=== PATIENT | female | born 1945 | race Caucasian/White ===

== ENCOUNTER 2016-12-01 17:12 | Emergency (ER) | payer MEDICARE ==
[2016-12-01 17:31] VITALS: BP 140/74
--- NOTE | 2016-12-01 17:58 | UC ---
Lower Extremity/Ankle HPI - HPI Summary HPI Summary: 71 y/o female presents to the urgent care c/o of severe Rt calf pain 2 hrs ago while she was vacuuming at home. Pt reports her pain was 10/10 and in the second episode she fell on the floor due to pain. Pt states she has Hx of Fibromyalgia on Gabapentin 25mg PO. Her pain now is with movement and is mild 4 /10. Patient denies fever, SOB, chest pain, N/V/D. - History of Current Complaint Chief Complaint: UCLowerExtremity Stated Complaint: LEG PAIN, FALL Time Seen by Provider: 12/01/16 17:41 Hx Obtained From: Patient Hx Last Menstrual Period: menopausal ?: No Onset/Duration: Sudden Onset, Lasting Hours, Still Present Severity Initially: Severe Severity Currently: Mild Pain Intensity: 4 Pain Scale Used: 0-10 Numeric Aggravating Factor(s): Ambulation Alleviating Factor(s): Rest Able to Bear Weight: Yes - Risk Factors Gout Risk Factors: Age Over 40 DVT Risk Factors: Negative Septic Arthritis Risk Factor: Negative - Allergies/Home Medications Allergies/Adverse Reactions: Allergies Allergy/AdvReac Type Severity Reaction Status Date / Time SOME ANTIBIOTICS Allergy Severe GI Upset Uncoded 12/01/16 17:46 Home Medications: Home Medications Cetirizine HCl [All Day Allergy] 10 mg PO DAILY 12/01/16 [History Confirmed ] Cholecalciferol [Vitamin D] 1,000 unit PO DAILY 12/01/16 [History Confirmed ] Clonazepam 0.5 mg PO DAILY 12/01/16 [History Confirmed 12/01/16] Cyanocobalamin [B12] 1,000 mcg PO DAILY 12/01/16 [History Confirmed 12/01/16] Gabapentin [Fanatrex Fusepaq] 25 mg PO DAILY 12/01/16 [History Confirmed ] Magnesium 500 mg PO DAILY 12/01/16 [History Confirmed 12/01/16] Sertraline HCl [Zoloft] 50 mg PO DAILY 12/01/16 [History Confirmed 12/01/16] Triamcinolone NASAL SPRAY* [Nasacort AQ Nasal [place]*] 1 puff NASAL DAILY [History Confirmed 12/01/16] Vitamin Mixture [Leanne-C] 1 tab PO DAILY 12/01/16 [History Confirmed 12/01/16] PMH/Surg Hx/FS Hx/Imm Hx Previously Healthy: Yes Endocrine History: Other Other Endocrine History: fibromyalgia - Surgical History Surgical History: Yes Surgery Procedure, Year, and Place: tubal ligation. Hysterectomy. thryroid - Family History Known Family History: Positive: Cardiac Disease, Hypertension Family History: bladder CA - Social History Occupation: Retired Lives: With Family Alcohol Use: Rare Substance Use Type: None Smoking Status (MU): Never Smoked Tobacco Review of Systems Constitutional: Negative Skin: Negative Eyes: Negative ENT: Negative Respiratory: Negative Cardiovascular: Negative Gastrointestinal: Negative Genitourinary: Negative Motor: Negative Neurovascular: Negative Musculoskeletal: Calf Tenderness - RT side Neurological: Negative Psychological: Negative All Other Systems Reviewed And Are Negative: Yes Physical Exam Triage Information Reviewed: Yes Appearance: Well-Appearing, No Pain Distress, Well-Nourished, Obese Vital Signs: Initial Vital Signs Temp 99.6 F 12/01/16 17:15 Pulse 56 12/01/16 17:15 Resp 16 12/01/16 17:15 BP 140/74 12/01/16 17:15 Pulse Ox 97 12/01/16 17:15 Vital Signs Reviewed: Yes Eye Exam: Normal Eyes: Positive: Conjunctiva Clear - PERRLA, EOMI, fundus grossly normal b/L ENT Exam: Normal ENT: Positive: Normal ENT inspection, Hearing grossly normal, Pharynx normal, TMs normal Dental Exam: Normal Neck exam: Normal Neck: Positive: Supple, Nontender, No Lymphadenopathy Respiratory Exam: Normal Respiratory: Positive: Chest non-tender, Lungs clear, Normal breath sounds Cardiovascular Exam: Normal Cardiovascular: Positive: RRR, No Murmur, Pulses Normal Abdominal Exam: Normal Abdomen Description: Positive: Nontender, No Organomegaly, Soft. Negative: CVA Tenderness (R), CVA Tenderness (L) Bowel Sounds: Positive: Present Musculoskeletal Exam: Normal Musculoskeletal: Positive: Strength Intact, ROM Intact, No Edema, Other: - Positive RT calf tenderness on deep palpation, Abbie's sign positive, no swelling, FROM. RT knee w/o swelling, erythema or tenderness, Valgus and varus test negative, drawer test negative, Beatriz's test negative. Positive popliteal, posterior tibialis and dorsalis pedis pulses. Neurovascular intact. Positive capillary refill. Strength normal. Neurological Exam: Normal Neurological: Positive: Alert Psychological Exam: Normal Skin Exam: Normal Lower Extremity Course/Dx - Course Course Of Treatment: RT calf pain: Hx obtained. PE abnormal finding:Positive RT calf tenderness on deep palpation, Abbie's sign positive, no swelling, FROM. RT knee w/o swelling, erythema or tenderness, Valgus and varus test negative, drawer test negative, Beatriz's test negative. Positive popliteal, posterior tibialis and dorsalis pedis pulses. Neurovascular intact. Positive capillary refill. Strength normal. HR: 56, BP: 140/76. At this moment the facility does' t hace [facility] to r/o DVT. They clos at 5pm. Pt transfer to ED. I spoke to Nurse Kaiser and advised Pt will be transfer there for further evaluation and treatment. Pt going on private car and signed [facility] ambulance tranfer. Patient left the clinic ambulating and vital signs: WNL - Differential Dx/Diagnosis Differential Diagnosis/HQI/PQRI: Bursitis, Cellulitis, DVT, Sciatica, Other - payne's cyst Provider Diagnoses: Right calf pain Discharge - Discharge Plan Condition: Stable Disposition: AGAINST MEDICAL ADVICE
== END 2016-12-01 18:31 | disposition left against medical advice (07) ==
LOC: UCEAST 17:12
DX: M79.661 Pain in right lower leg (principal); M79.7 Fibromyalgia; E66.9 Obesity, unspecified; Z88.1 Allergy status to other antibiotic agents; Z90.710 Acquired absence of both cervix and uterus
CPT/HCPCS: 99212; G0463

== ENCOUNTER 2016-12-01 18:50 | Emergency (ER) | payer MEDICARE ==
--- NOTE | 2016-12-01 21:39 | RAD ---
HISTORY: Right lower extremity pain COMPARISONS: None relevant TECHNIQUE: Multiple transverse and longitudinal ultrasound images were obtained of the right lower extremity from the level of the common femoral vein inferiorly through to the infrapopliteal veins using grayscale, color Doppler, and spectral Doppler imaging with and without compression and with augmentation. Comparison images were obtained of the contralateral common femoral vein. FINDINGS: VEINS: The venous system of the right lower extremity is compressible throughout its course, with normal flow on color Doppler imaging and normal response to augmentation on spectral Doppler imaging. SOFT TISSUES: Unremarkable. OTHER FINDINGS: There is a 5.1 x 0.8 x 2.5 cm popliteal fossa cyst IMPRESSION: 1. NO RIGHT LOWER EXTREMITY DEEP VEIN THROMBOSIS. 2. 5.1 CM WARREN'S CYST
[2016-12-01 22:58] VITALS: BP 165/80
--- NOTE | 2016-12-02 13:06 | ED ---
kulwant Victoria Timothy, scribed for Jeet Perez MD on 12/01/16 at 2242 . Lower Extremity - HPI Summary HPI Summary: Aleta Castellanos is a 71 yo female presenting to [facility] with 2/10 right calf pain for the past few hours, less now than earlier. She was seen at urgent care and recommended to present to [facility] for r/o of DVT. She states her pain increases with certain positions. She denies any swelling. Her MHx includes hysterectomy. - History of Current Complaint Chief Complaint: EDExtremityLower Stated Complaint: PAIN RT CALF Time Seen by Provider: 12/01/16 22:37 Hx Obtained From: Patient Hx Last Menstrual Period: menopausal Mechanism Of Injury: Unknown Onset of Pain: Hours Onset/Duration: Hours Severity Initially: Moderate Severity Currently: Moderate Pain Intensity: 2 Pain Scale Used: 0-10 Numeric Timing: Constant Location: Is Discrete @ - RLE Aggravating Factor(s): Other Able to Bear Weight: Yes - Allergies/Home Medications Allergies/Adverse Reactions: Allergies Allergy/AdvReac Type Severity Reaction Status Date / Time SOME ANTIBIOTICS Allergy Severe GI Upset Uncoded 12/01/16 17:46 PMH/Surg Hx/FS Hx/Imm Hx Endocrine/Hematology History: Denies: Hx Diabetes, Hx Thyroid Disease Cardiovascular History: Denies: Hx Hypertension Respiratory History: Denies: Hx Asthma, Hx Chronic Obstructive Pulmonary Disease (COPD) GI History: Denies: Hx Ulcer - Cancer History Hx Chemotherapy: No Hx Radiation Therapy: No - Surgical History Surgery Procedure, Year, and Place: tubal ligation. Hysterectomy. thryroid Infectious Disease History: No Infectious Disease History: Denies: Hx Clostridium Difficile, Hx Hepatitis, Hx Human Immunodeficiency Virus (HIV), Hx of Known/Suspected MRSA, Hx Shingles, Hx Tuberculosis, Hx Known/ Suspected VRE, Hx Known/Suspected VRSA, History Other Infectious Disease, Traveled Outside the [place] in Last 30 Days - Family History Known Family History: Positive: Cardiac Disease, Hypertension Negative: Diabetes Family History: bladder CA - Social History Alcohol Use: Rare Substance Use Type: Reports: None Smoking Status (MU): Never Smoked Tobacco Review of Systems Constitutional: Negative Eyes: Negative ENT: Negative Cardiovascular: Negative Respiratory: Negative Gastrointestinal: Negative Genitourinary: Negative Musculoskeletal: Other - RLE pain Skin: Negative Neurological: Negative Psychological: Normal All Other Systems Reviewed And Are Negative: Yes Physical Exam Triage Information Reviewed: Yes Vital Signs On Initial Exam: Initial Vitals Temp Pulse Resp BP Pulse Ox 97.8 F 57 20 159/69 100 12/01/16 18:53 12/01/16 18:53 12/01/16 18:53 12/01/16 18:53 12/01/16 18:53 Vital Signs Reviewed: Yes Appearance: Positive: Well-Appearing, No Pain Distress, Well-Nourished Skin: Positive: Warm, Skin Color Reflects Adequate Perfusion, Dry Head/Face: Positive: Normal Head/Face Inspection Eyes: Positive: Normal ENT: Positive: Normal ENT inspection Neck: Positive: Supple, Nontender Respiratory/Lung Sounds: Positive: Clear to Auscultation, Breath Sounds Present Cardiovascular: Positive: RRR Abdomen Description: Positive: Nontender, Soft Bowel Sounds: Positive: Present Musculoskeletal: Positive: Other - tender at the right popliteal fossa Neurological: Positive: Normal Psychiatric: Positive: Normal, Affect/Mood Appropriate Diagnostics - Vital Signs Vital Signs Temp Pulse Resp BP Pulse Ox 12/01/16 20:15 97.7 F 54 18 156/61 100 12/01/16 18:56 98.3 F 54 20 159/69 94 12/01/16 18:53 97.8 F 57 20 159/69 100 - Laboratory Lab Statement: Any lab studies that have been ordered have been reviewed, and results considered in the medical decision making process. - Ultrasound No standard instances Ultrasound Interpretation: No Acute Changes - IMPRESSION: 1. NO RIGHT LOWER EXTREMITY DEEP VEIN THROMBOSIS. 2. 5.1 CM PAYNE'S CYST Ultrasound Interpretation Completed By: Radiologist - US RLE Lower Extremity Course/Dx - Course Assessment/Plan: Aleta Castellanos is a 71 yo female presenting to [facility] with 2/10 RLE pain, recommended by urgent care for r/o DVT. Her RLE venous doppler suggested no DVT and a 5.1 cm payne's cyst. After clinical examination and review of her imaging study, she will be discharged home with payne's cyst with appropriate instructions. - Diagnoses Provider Diagnoses: Bakers cyst Discharge - Discharge Plan Condition: Stable Disposition: HOME Patient Education Materials: Bakers Cyst (ED) Referrals: Kris Betancourt MD [Primary Care Provider] - 2 Days Jennifer Coello MD [Medical Doctor] - 2 Days Additional Instructions: Please follow up with your primary care physician and the orthopedist provided regarding your visit to the emergency department today. Return to the emergency department with any new or recurring symptoms. The documentation as recorded by the kulwant damico Timothy accurately reflects the service I personally performed and the decisions made by me, Jeet Perez MD.
== END 2016-12-01 22:55 | disposition home or self-care (01) ==
LOC: ED 18:50
DX: M71.20 Synovial cyst of popliteal space [Baker], unspecified knee (principal)
CPT/HCPCS: 99282